=== PATIENT | female | born 1945 | race African-American/Black ===

== ENCOUNTER 2023-12-12 21:30 | Outpatient (REF) | payer MEDICARE, SELFPAY ==
[2023-12-13 12:13] LABS: Influenza A PCR NEGATIVE (Negative); Influenza B PCR NEGATIVE (Negative); Resp Syncy Virus RNA Qual PCR NEGATIVE (Negative); SARS COV2 PCR INHOUSE NEGATIVE (Negative)
== END 2023-12-12 21:31 | disposition home or self-care (01) ==
LOC: HO.MMNH1L 21:30
PROVIDERS: Ophthalmology; Visit Provider Family Medicine
DX: I10 Essential (primary) hypertension (principal); E46 Unspecified protein-calorie malnutrition; I69.359 Hemiplegia and hemiparesis following cerebral infarction affecting unspecified side; Z11.52 Encounter for screening for COVID-19
CPT/HCPCS: 0241U

== ENCOUNTER 2023-12-14 05:36 | Outpatient (REF) | payer MEDICARE, SELFPAY | END 2023-12-14 05:37 | disposition home or self-care (01) | LOC: HO.MMNH1L 05:36 | PROVIDERS: Visit Provider Family Medicine | DX: Z13.89 Encounter for screening for other disorder (principal) ==